=== PATIENT | female | born 1995 | race Caucasian/White ===

== ENCOUNTER 2019-03-07 08:05 | Day surgery (SDC) | payer BC ==
[2019-03-04 12:13] LABS: BASOPHILS 0.4 % (0-2); EOSINOPHILS 1.2 % (0-7); HEMATOCRIT 37.8 % (36.0-48.0); HEMOGLOBIN 12.1 g/dL (12-16); IMMATURE GRANULOCYTES 0.2 % (0-5); MCH 27.1 pg (26.0-34.0); MCV 84.8 fL (80.0-100.0); MONOCYTES 5.5 % (2-11); NEUTROPHILS 58.7 % (40-80); PLATELET COUNT 235 10x3/uL (130-400); RBC 4.46 10x6/uL (4.00-5.40); RDW 13.3 % (11.5-14.5); WBC 8.6 10x3/uL (4.8-10.8)
[~2019-03-07] VITALS: Ht 165.1 cm; Wt 114.3 kg
--- NOTE | ~2019-03-07 | OP ---
PATIENT NAME: KAYLIE LOZANO MEDICAL RECORD: [id number] :95 LOCATION:D.OPS ADMISSION DATE: SURGEON: ABDULLAHI MACK MD DATE OF OPERATION: 03/07/2019 PREOPERATIVE DIAGNOSES: 1. Pelvic pain. 2. Pelvic mass. 3. Polycystic ovarian syndrome. POSTOPERATIVE DIAGNOSES: 1. Pelvic pain. 2. Pelvic mass. 3. Polycystic ovarian syndrome. 4. Left ovarian cyst. PROCEDURE: 1. Diagnostic laparoscopy. 2. Laparoscopic left cystectomy. 3. Ovarian drilling. SURGEON: Abdullahi Mack MD STAGE SETTING PAINTER APPRENTICE: Young Mayo. ANESTHESIOLOGIST: Jonathan Hassan. ANESTHETIC: General. FINDINGS: Bilateral ovaries are enlarged with a smooth capsule. The left ovary was noted to have approximately 3.5-4 cm cyst associated with it. The uterus is retroverted. No obvious lesion of endometriosis, but the condition cannot be ruled out. What was visualized of the abdominal anatomy was unremarkable. SPECIMEN REMOVED: Ovarian cyst wall and capsule. SPECIMEN DISPOSITION: Pathology. ESTIMATED BLOOD LOSS: Minimal. FLUIDS: 1 liter lactated Ringer's. URINE OUTPUT: Quantity sufficient cath prior to this procedure. COMPLICATIONS: None. DRAINS: None. INDICATIONS: The patient is a 23-year-old nulliparous female with pelvic pain. The patient on workup was found to have an ovarian cyst. The patient has a longstanding history of dyspareunia and pain, and was consented for diagnostic laparoscopy and any indicated procedure. DESCRIPTION OF PROCEDURE: After informed consent was assured, the patient was taken to the operating room where anesthetic was obtained. The patient was OPERATIVE REPORT [id number] KAYLIE LOZANO prepped and draped. An incision made at the umbilicus to accommodate a 5-mm trocar. The trocar was inserted without difficulty and pneumoperitoneum developed. With the patient in Trendelenburg position, accessory ports were now placed in the midline and in the right lower quadrant. Through the right lower quadrant, a blunt probe was inserted. The bowel was swept free of the pelvis with the above findings. The uterine ovarian ligament of the right side was grasped with atraumatic grasper from the midline and from the right side. Bovie cautery was utilized to drill approximately 15 small sites on the large capsule. This was repeated on the contralateral side. After drilling both ovaries, the attention was directed to the mass. With the left uteroovarian ligament held fast from the midline, the coagulation cutter was now used to open the cyst and remove a segment of the capsule and cyst wall. The cyst wall was now stripped, freed the cavity width [place] graspers. All specimens were sent to pathology. Inspection revealed adequate hemostasis. The pelvis was irrigated and irrigant removed. The pneumoperitoneum was released as the accessory trocars were removed. The primary trocar was now removed and all sites closed with a subcuticular stitch. Sponge, lap, and needle counts correct times 2. TRANSINT:[id number] Voice Confirmation ID: [id number] DOCUMENT ID: [id number] ABDULLAHI MACK MD CC: [id number] DICTATION DATE: 03/07/19 1235 GLOBAL ACCOUNT EXECUTIVE: 03/07/19 1531 [facility] [address] [place] [address]
[~2019-03-07 08:05] MED LIST: CELEXA10 MG PO
[2019-03-07 08:26] VITALS: BP 154/95; Ht 165.1 cm; Wt 114.3 kg
[2019-03-07 08:38] LABS: HCG URINE NEGATIVE (NEGATIVE)
== END 2019-03-07 15:20 | disposition home or self-care (01) ==
LOC: D.OPS 08:05 → D.PAN 09:25 → D.OPS 09:25
PROVIDERS: ATTEND Obstetrics & Gynecology
DX: R10.2 Pelvic and perineal pain (principal); R19.00 Intra-abdominal and pelvic swelling, mass and lump, unspecified site; E28.2 Polycystic ovarian syndrome; N94.10 Unspecified dyspareunia; N91.5 Oligomenorrhea, unspecified